=== PATIENT | male | born 1960 | race Caucasian/White ===

== ENCOUNTER → 2017-06-02 | Outpatient (CLI) | payer BC, OTHER ==
[2016-05-06 15:18] VITALS: BP 111/81
[~2017-06-02] MED LIST: ASPI-630 PO; ATORVASTATIN CA80 MG PO; CARV25TA2 PO; FLUT16SP NS; LISI-334 PO; LISI40TA PO; NIAC1000 PO; OMEP20CA9 PO; PRAS10TA9 PO; UBID100T5 PO
--- NOTE | 2017-06-05 09:28 | CARD ---
APPROVED REPORT EXAM: Two-dimensional and M-mode echocardiogram with Doppler and color Doppler. Other Information Quality : GoodHR: 61bpm Rhythm : NSR INDICATION Ischemic cardiomyopathy RISK FACTORS Hypertension Hyperlipidemia Previous tobacco user 2D DIMENSIONS RVDd3.3 (2.9-3.5cm)Left Atrium(2D)3.7 (1.6-4.0cm) IVSd0.9 (0.7-1.1cm)Aortic Root(2D)3.0 (2.0-3.7cm) LVDd5.7 (3.9-5.9cm)LVOT Diameter2.3 (1.8-2.4cm) PWd0.9 (0.7-1.1cm)LVDs4.8 (2.5-4.0cm) FS (%) 15.3 %SV51.3 ml LVEF(%)31.8 (>50%) Aortic Valve AoV Peak Thomas.115.1cm/sAoV VTI28.6cm AO Peak GR.5.3mmHgLVOT Peak Thomas.91.0cm/s AO Mean GR.3mmHgAVA (VMAX)3.17cm2 Mitral Valve MV E Sjglijff85.7cm/sMV DECEL UFGJ200yn MV A Tzoiaobg06.4cm/sE/A Ratio1.5 MV A Bgfruznx18hm Pulmonary Valve PV Peak Ydbxdivx082.0cm/s Tricuspid Valve TR P. Czftqtim071rq/sTR Peak Gr.21mmHg Pulmonary Vein S1 Hlifzoze53.8cm/sD2 Sqzpjyvd59.1cm/s PVa gjvjnjnu44ogxr LEFT VENTRICLE The Left Ventricle is mildly dilated. There is normal left ventricular wall thickness. The Ejection F raction is 35-40%. Akinesis of the mid to distal anterior and anteroseptal sung and also the apical wall. The left ventricular diastolic function and filling is normal for age. No left ventricle thromb us noted on this study. RIGHT VENTRICLE The right ventricle is normal size. There is normal right ventricular wall thickness. The right ventr icular systolic function is normal. There is a pacemaker/ICD lead in the right ventricle. ATRIA The left atrium size is normal. The right atrium size is normal. The interatrial septum is intact wit h no evidence for an atrial septal defect or patent foramen ovale as noted on 2-D or Doppler imaging. AORTIC VALVE The aortic valve is mildly sclerotic. The aortic valve is trileaflet. Doppler and Color Flow revealed no significant aortic regurgitation. There is no significant aortic valvular stenosis. MITRAL VALVE Mitral annular calcification is mild. The mitral valve leaflets are thickened. There is no evidence o f mitral valve prolapse. There is no mitral valve stenosis. Doppler and Color Flow revealed mild mitr al regurgitation. TRICUSPID VALVE Doppler and Color Flow revealed trace tricuspid regurgitation. The pulmonary artery systolic pressure is estimated at 24 mmHg. There is no pulmonary hypertension. PULMONIC VALVE The pulmonary valve is not well visualized but appears to open adequately. Doppler and Color Flow rev ealed no pulmonic valvular regurgitation. There is no pulmonic valvular stenosis by spectral Doppler. GREAT VESSELS The aortic root is normal in size. The ascending aorta is normal in size. The pulmonary artery is nor mal. The IVC is normal in size and collapses >50% with inspiration. PERICARDIAL EFFUSION There is no evidence of significant pericardial effusion. Critical Notification Critical Value: No <Conclusion> Akinesis of the mid to distal anterior and anteroseptal sung and also the apical wall. The Ejection Fraction is 35-40%. There is a pacemaker/ICD lead in the right atrium and right ventricle. Mild mitral regurgitation. Trace tricuspid regurgitation. The pulmonary artery systolic pressure is estimated at 24 mmHg. There is no evidence of significant pericardial effusion.
== END | disposition home or self-care (01) ==
LOC: ECHO 07:43
PROVIDERS: ATTEND Internal Medicine Cardiovascular Disease
DX: I34.0 Nonrheumatic mitral (valve) insufficiency (principal); I25.5 Ischemic cardiomyopathy; I10 Essential (primary) hypertension; E78.5 Hyperlipidemia, unspecified; Z87.891 Personal history of nicotine dependence
CPT/HCPCS: 93306

== ENCOUNTER → 2018-06-08 | Outpatient (CLI) | payer BC ==
[2016-05-06 15:18] VITALS: BP 111/81
[~2018-06-08] MED LIST changes: +LISI-130 PO; -LISI40TA PO
--- NOTE | 2018-06-08 10:07 | CARD ---
MR#: [id number] Date of Study: 06/08/2018 Ordering Physician: SONAL ANNA, Referring Physician: SONAL ANNA Tech: Donna Dominguez ANDRESSA APPROVED REPORT EXAM: Two-dimensional and M-mode echocardiogram with Doppler and color Doppler. Other Information Quality : Technically LimitedHR: 55bpm Rhythm : PacemakerTechnically limited study due to body habitus. INDICATION Cardiomyopathy 2D DIMENSIONS RVDd3.5 (2.9-3.5cm)Left Atrium(2D)4.1 (1.6-4.0cm) IVSd1.2 (0.7-1.1cm)Aortic Root(2D)3.2 (2.0-3.7cm) LVDd5.8 (3.9-5.9cm)LVOT Diameter1.9 (1.8-2.4cm) PWd1.1 (0.7-1.1cm)IVSs1.2 (0.8-1.2cm) LVDs3.8 (2.5-4.0cm)FS (%) 22.0 % PWs1.3 (0.8-1.2cm)SV106.9 ml LVEF(%)40.0 (>50%) M-Mode DIMENSIONS Left Atrium(MM)4.38 (2.5-4.0cm)Aortic Root3.36 (2.2-3.7cm) Aortic Valve AoV Peak Thomas.118.3cm/sAoV VTI23.8cm AO Peak GR.5.6mmHgLVOT Peak Thomas.89.6cm/s LVOT VTI 23.67cmAO Mean GR.3mmHg ADRIEL (VTI)2.71cm2 Mitral Valve MV E Ukjlexoc14.1cm/sMV DECEL DDRM847bs MV A Aqcleljo80.9cm/sMV GOQ87hz E/A Ratio1.2MVA (PHT)4.16cm2 TDI E/Lateral E'7.9E/Medial E'9.4 Pulmonary Valve PV Peak Bdavwngp630.6cm/sPV Peak Grad.5mmHg Tricuspid Valve TR P. Dvlubaki953kq/sRAP VCUDODKN1toSc TR Peak Gr.07kiMlOHDU71aeVa Pulmonary Vein S1 Indopvwk14.1cm/sD2 Hegzrzbu58.9cm/s PVa xjgvamdo06emfr LEFT VENTRICLE The Left Ventricle is borderline dilated. There is normal left ventricular wall thickness. The systol ic function is severely. The Ejection Fraction is 35-40%. Akinesis of the mid to distal anterior and anteroseptal sung as well as apex. Tissue Doppler imaging reveals moderate left ventricular diastoli c dysfunction. RIGHT VENTRICLE The right ventricle is normal size. There is normal right ventricular wall thickness. The right ventr icular systolic function is normal. Probable ICD/pacer lead noted in the RV ATRIA The left atrium is borderline dilated. The right atrium size is normal. The interatrial septum is int act with no evidence for an atrial septal defect or patent foramen ovale as noted on 2-D or Doppler i maging. AORTIC VALVE The aortic valve is thickened but opens well. Doppler and Color Flow revealed no significant aortic r egurgitation. There is no significant aortic valvular stenosis. MITRAL VALVE The mitral valve is normal in structure and function. There is no evidence of mitral valve prolapse. There is no mitral valve stenosis. Doppler and Color-flow revealed mild mitral regurgitation. TRICUSPID VALVE The tricuspid valve is normal in structure and function. Doppler and Color Flow revealed trace to mil d tricuspid regurgitation. The PA pressure was estimated at 24 mmHg. There is no tricuspid valve prol apse or vegetation. There is no tricuspid valve stenosis. PULMONIC VALVE Doppler and Color Flow revealed no pulmonic valvular regurgitation. There is no pulmonic valvular gladys nosis. GREAT VESSELS The aortic root is normal in size. The ascending aorta is normal in size. PERICARDIAL EFFUSION There is no evidence of significant pericardial effusion. Critical Notification Critical Value: No <Conclusion> The systolic function is severely. The Ejection Fraction is 35-40%. Akinesis of the mid to distal anterior and anteroseptal sung as well as apex. Probable ICD/pacer lead noted in the RV Signed by : James Paez, Electronically Approved : 06/08/2018 10:06:18
== END | disposition home or self-care (01) ==
LOC: ECHO 08:46
PROVIDERS: ATTEND Internal Medicine Cardiovascular Disease
DX: I42.9 Cardiomyopathy, unspecified (principal); I11.0 Hypertensive heart disease with heart failure; I50.22 Chronic systolic (congestive) heart failure; I25.10 Atherosclerotic heart disease of native coronary artery without angina pectoris; I25.5 Ischemic cardiomyopathy; I24.9 Acute ischemic heart disease, unspecified; I25.2 Old myocardial infarction; F41.9 Anxiety disorder, unspecified; E78.5 Hyperlipidemia, unspecified; E78.00 Pure hypercholesterolemia, unspecified; Z82.49 Family history of ischemic heart disease and other diseases of the circulatory system; Z80.8 Family history of malignant neoplasm of other organs or systems; Z95.2 Presence of prosthetic heart valve; Z95.5 Presence of coronary angioplasty implant and graft; Z95.810 Presence of automatic (implantable) cardiac defibrillator; Z87.891 Personal history of nicotine dependence
CPT/HCPCS: 93306

== ENCOUNTER → 2018-12-14 | Outpatient (CLI) | payer BC ==
[2016-05-06 15:18] VITALS: BP 111/81
[~2018-12-14] MED LIST changes: +OMEP20CA10 PO; -OMEP20CA9 PO; +REGADENOSON 0.4 MG/5 ML DISP.SYRIN. IV ONE
--- NOTE | 2018-12-14 11:53 | RAD ---
MR#: [id number] Date of Study: 12/14/2018 Ordering Physician: SONAL ANNA, Referring Physician: ANNEMARIE JUÁREZ Tech: GLORIA Chen, ARRT (R) (N) APPROVED REPORT Test Type: Pharmacological Stress Nurse/Tech: Jannet Self RN Test Indications: CAD Cardiac History: MS with stents, PPM/AICD, HTN, x-smoker Medications: See Electronic Medical Record Medical History: See Electronic Medical Record Resting ECG: SR Resting Heart Rate: 57 bpm Resting Blood Pressure: 120/75mmHg Pretest Chest Pain: None Nurse/Tech Notes Lungs CTA, S1S2 Consent: The procedure was explained to the patient in lay terms. Informed consent was witnessed. Hill eout was entered into [employer]. History and Stress Test performed by jannet Self RN Pharm. Details Pharmacologic stress testing was performed using 0.4mg per 5ml of regadenoson given intravenously ove r 7-10 seconds. Stress Symptoms No chest pain or symptoms. POST EXERCISE Reason for Termination: Infusion complete Max HR: 96 bpm Max Blood Pressure: 131/74mmHg Blood Pressure response to exercise: Normal blood pressure response during stress. Heart Rate response to exercise: normal response Chest Pain: No. Arrhythmia: No. ST Change: No. INTERPRETATION Stress EKG Conclusion: Baseline EKG showed sinus rhythm with old anteroseptal infarction. Nondiagnost ic changes at peak stress. No arrhythmias. Imaging Protocol IMAGE PROTOCOL: Rest Tc-99m/stress Tc-99m 1 day Rest: Stress: Viability: Radiopharm.Tc99m QfjrfjmfoTv88i Sestamibi Zaub14yWf 31mCi Img Date 12/14/2018 12/14/2018 Inj-Img Qbib79fdq. 60min. Rest Admin Site:IV - Left AntecubitalAdministrator:RUFINO Yañez Stress Admin Site: IV - Left AntecubitalAdministrator: Robby Monson RT (R)(N) STRESS DATA End Diast. Vol.154.0mlLVEDV index BSA72.0ml End Syst. Vol.66.0mlLVESV index BSA31.0ml Myocardial Tzei869.0gEject. Gsptpiqp09.0% Stress Scores Regional WT1.00Summed WT27.00 Regional WM0.00Summed WM12.00 LV Perfusion Scintigraphic images showed large predominantly fixed defect involving the mid to distal anterior and anteroseptal sung and the entire apical wall consistent with previous myocardial infarction with ve ry small amount of reversibility consistent with giselle-infarct ischemia. Wall Motion Akinetic mid to distal anterior wall and apical wall with ejection fraction calculated at 57%. LV Perf. Quant 17 Seg. SSS33.00 17 Seg. SRS30.00 17 Seg. SDS5.00 Stress Defect Extent (% LAD)73.10Rest Defect Extent (% LAD)66.30Rev. Defect Extent (% LAD)31.30 Stress Defect Extent (% LCX) 26.30Rest Defect Extent (% LCX)23.80Rev. Defect Extent (% LCX)26.30 Stress Defect Extent (% RCA)50.00Rest Defect Extent (% RCA)50.00Rev. Defect Extent (% RCA)18.90 Stress Defect Extent (% JEAN)58.30Rest Defect Extent (% JEAN)53.50Rev. Defect Extent (% JEAN)28.50 Conclusion 1. Regadenoson cardioisotope stress test showed a large infarct involving the mid to distal anterior and anteroseptal sung and the entire apical wall with very small amount of giselle-infarct ischemia. 2. Akinetic mid to distal anterior wall and apical wall with ejection fraction calculated at 57%. 3. Low to intermediate risk for cardiac events. Signed by : Sonal Anna, Electronically Approved : 12/14/2018 11:52:35
== END | disposition home or self-care (01) ==
LOC: NM 07:56
PROVIDERS: ATTEND Internal Medicine Cardiovascular Disease
DX: I25.10 Atherosclerotic heart disease of native coronary artery without angina pectoris (principal); I25.2 Old myocardial infarction; I10 Essential (primary) hypertension; Z87.891 Personal history of nicotine dependence
CPT/HCPCS: 78452; 93017; 96374; A9500; J2785

== ENCOUNTER → 2019-06-14 | Outpatient (CLI) | payer BC ==
[2016-05-06 15:18] VITALS: BP 111/81
[~2019-06-14] MED LIST changes: -REGADENOSON 0.4 MG/5 ML DISP.SYRIN. IV ONE
--- NOTE | 2019-06-14 10:06 | CARD ---
MR#: [id number] Date of Study: 06/14/2019 Ordering Physician: SONAL ANNA, Referring Physician: SONAL ANNA Tech: Donna Dominguez RDCS APPROVED REPORT EXAM: Two-dimensional and M-mode echocardiogram with Doppler and color Doppler. Other Information Quality : Technically LimitedHR: 67bpm Rhythm : NSRTechnically limited study due to body habitus. INDICATION Congestive Heart Failure 2D DIMENSIONS RVDd3.5 (2.9-3.5cm)Left Atrium(2D)3.8 (1.6-4.0cm) IVSd1.2 (0.7-1.1cm)Aortic Root(2D)2.8 (2.0-3.7cm) LVDd5.3 (3.9-5.9cm)LVOT Diameter1.9 (1.8-2.4cm) PWd1.1 (0.7-1.1cm)LVDs4.0 (2.5-4.0cm) FS (%) 24.3 %SV65.1 ml LVEF(%)45.0 (>50%) Aortic Valve AoV Peak Thomas.103.8cm/sAoV VTI19.6cm AO Peak GR.4.3mmHgLVOT Peak Thomas.77.0cm/s AO Mean GR.2mmHgAVA (VMAX)2.11cm2 ADRIEL (VTI)2.20cm2 Mitral Valve MV E Vdetwwyx21.7cm/sMV DECEL OJZO084ow MV A Qrwbedkv42.8cm/sE/A Ratio0.9 Pulmonary Valve PV Peak Fbktvcsb727.2cm/s Tricuspid Valve TR P. Xjyyrnwf394tb/sRAP BZKLGLKR6lbWt TR Peak Gr.45ieCdXQSY02wpPv LEFT VENTRICLE The left ventricle is normal size. There is mild concentric left ventricular hypertrophy. Akinesis of mid to distal anterior and anteroseptal sung and also the apical wall. The Ejection Fraction is 35% . Transmitral Doppler flow pattern is Grade I-abnormal relaxation pattern. RIGHT VENTRICLE The right ventricle is normal size. There is normal right ventricular wall thickness. The right ventr icular systolic function is normal. ICD lead noted in RV/RA. ATRIA The left atrium size is normal. The right atrium size is normal. The interatrial septum is intact wit h no evidence for an atrial septal defect or patent foramen ovale as noted on 2-D or Doppler imaging. AORTIC VALVE The aortic valve is normal in structure and function. The aortic valve is trileaflet. Doppler and Col or Flow revealed no significant aortic regurgitation. There is no significant aortic valvular stenosi s. There is no aortic valvular vegetation. MITRAL VALVE The mitral valve is normal in structure and function. There is no evidence of mitral valve prolapse. There is no mitral valve stenosis. Doppler and Color-flow revealed mild mitral regurgitation. TRICUSPID VALVE The tricuspid valve is normal in structure and function. Doppler and Color Flow revealed trace tricus pid regurgitation. The PA pressure was estimated at 33 mmHg. There is no tricuspid valve prolapse or vegetation. There is no tricuspid valve stenosis. PULMONIC VALVE The pulmonic valve is not well visualized. GREAT VESSELS The aortic root is normal in size. The ascending aorta is normal in size. The IVC was not visualized. PERICARDIAL EFFUSION There is no evidence of significant pericardial effusion. Critical Notification Critical Value: No <Conclusion> Akinesis of mid to distal anterior and anteroseptal sung and also the apical wall. The Ejection Fraction is 35%. Transmitral Doppler flow pattern is Grade I-abnormal relaxation pattern. ICD lead noted in RV/RA. Mild mitral regurgitation. Trace tricuspid regurgitation. The PA pressure was estimated at 33 mmHg. There is no evidence of significant pericardial effusion. Signed by : Sonal Anna, Electronically Approved : 06/14/2019 10:06:35
== END | disposition home or self-care (01) ==
LOC: ECHO 07:28
PROVIDERS: ATTEND Internal Medicine Cardiovascular Disease
DX: I34.0 Nonrheumatic mitral (valve) insufficiency (principal)
CPT/HCPCS: 93306

== ENCOUNTER → 2020-07-31 | Outpatient (CLI) | payer BC ==
[2016-05-06 15:18] VITALS: BP 111/81
[~2020-07-31] MED LIST changes: -OMEP20CA10 PO; +OMEP20CA16 PO; +REGADENOSON 0.4 MG/5 ML DISP.SYRIN. IV ONE
--- NOTE | 2020-07-31 11:32 | CARD ---
MR#: [id number] Date of Study: 07/31/2020 Ordering Physician: SONAL ANNA, Referring Physician: SONAL ANNA, Tech: Millicent Larson APPROVED REPORT EXAM: Two-dimensional and M-mode echocardiogram with Doppler and color Doppler. Other Information HR: 62bpm INDICATION Congestive Heart Failure RISK FACTORS Hypertension Hyperlipidemia 2D DIMENSIONS RVDd4.1 (2.9-3.5cm)Left Atrium(2D)3.8 (1.6-4.0cm) IVSd0.9 (0.7-1.1cm)Aortic Root(2D)3.2 (2.0-3.7cm) LVDd5.7 (3.9-5.9cm)LVOT Diameter2.0 (1.8-2.4cm) PWd1.1 (0.7-1.1cm)LVDs4.1 (2.5-4.0cm) FS (%) 28.3 %SV86.1 ml LVEF(%)54.0 (>50%) Aortic Valve AoV Peak Thomas.117.7cm/sAoV VTI28.6cm AO Peak GR.5.5mmHgLVOT Peak Thomas.118.8cm/s LVOT VTI 24.56cmAO Mean GR.3mmHg ADRIEL (VMAX)2.20kp8MOQ (VTI)2.76cm2 Mitral Valve MV E Ahtfzkkg22.6cm/sMV DECEL EMDW162qu MV A Syzrxveg83.4cm/sMV ZFH17vb E/A Ratio1.1MVA (PHT)3.96cm2 TDI E/Lateral E'13.7E/Medial E'12.1 Pulmonary Valve PV Peak Yoroecmc40.2cm/sPV Peak Grad.2mmHg Tricuspid Valve TR P. Szpgnvci625ex/sRAP PDNZTYZF9zxBl TR Peak Gr.89hxEjAPZL82kkHg Pulmonary Vein S1 Xgozclla75.3cm/sD2 Ooraiylk20.3cm/s PVa cluxirls418fgcn LEFT VENTRICLE The left ventricle is normal size. There is borderline to mild concentric left ventricular hypertroph y. Akinetic mid to distal anterior and anteroseptal sung and the apical wall. The Ejection Fraction is 35%. Transmitral Doppler flow pattern is Grade II-pseudonormal filling dynamics. RIGHT VENTRICLE The right ventricle is normal size. There is normal right ventricular wall thickness. The right ventr icular systolic function is normal. Pacer/ICD lead noted RA/RV. ATRIA The left atrium is mildly dilated. The right atrium size is normal. The interatrial septum is intact with no evidence for an atrial septal defect or patent foramen ovale as noted on 2-D or Doppler imagi ng. AORTIC VALVE The aortic valve is normal in structure and function. Doppler and Color Flow revealed trace aortic re gurgitation. There is no significant aortic valvular stenosis. Calculated aortic valve area is 2.66 c m2 with maximum pressure gradient of 6 mmHg and mean pressure gradient of 4 mmHg. MITRAL VALVE The mitral valve is normal in structure and function. There is no evidence of mitral valve prolapse. There is no mitral valve stenosis. Doppler and Color-flow revealed trace mitral regurgitation. TRICUSPID VALVE The tricuspid valve is normal in structure and function. Doppler and Color Flow revealed trace tricus pid regurgitation with an estimated PAP of 25 mmHg. There is no tricuspid valve stenosis. PULMONIC VALVE The pulmonic valve is not well visualized. Doppler and Color Flow revealed no pulmonic valvular regur gitation. GREAT VESSELS The aortic root is normal in size. The ascending aorta is normal in size. The IVC was not well visual ized. PERICARDIAL EFFUSION There is no evidence of significant pericardial effusion. Critical Notification Critical Value: No <Conclusion> Akinetic mid to distal anterior and anteroseptal sung and the apical wall. The Ejection Fraction is 35%. Transmitral Doppler flow pattern is Grade II-pseudonormal filling dynamics. Pacer/ICD lead noted RA/RV. Trace mitral regurgitation. Trace tricuspid regurgitation with an estimated PAP of 25 mmHg. There is no evidence of significant pericardial effusion. Signed by : Sonal Anna, Electronically Approved : 07/31/2020 11:31:59
--- NOTE | 2020-07-31 13:46 | RAD ---
MR#: [id number] Date of Study: 07/31/2020 Ordering Physician: SONAL ANNA, Referring Physician: ANNEMARIE JUÁREZ Tech: RT Parish (R) (N) APPROVED REPORT Test Type: Pharmacological Stress Nurse/Tech: Iris Pacheco R.N. Test Indications: CAD Cardiac History: Family history, Hypertension, stents Medications: See Electronic Medical Record Medical History: See Electronic Medical Record Resting ECG: s. leanne Resting Heart Rate: 59 bpm Resting Blood Pressure: 147/97mmHg Pretest Chest Pain: No chest pain Nurse/Tech Notes S1S2, lungs sound clear Consent: The procedure was explained to the patient in lay terms. Informed consent was witnessed. Hill eout was entered into [employer]. History and Stress Test performed by Iris Pacheco R.N. Pharm. Details Pharmacologic stress testing was performed using 0.4mg per 5ml of regadenoson given intravenously ove r 7-10 seconds. Stress Symptoms Dyspnea POST EXERCISE Reason for Termination: Infusion complete Target HR: 135 Max HR: 84 bpm Max Blood Pressure: 150/88mmHg Blood Pressure response to exercise: Normal blood pressure response during stress. Chest Pain: No. Arrhythmia: No. ST Change: No. INTERPRETATION Stress EKG Conclusion: Baseline EKG showed sinus rhythm with old anteroseptal infarct. Nondiagnostic changes at peak stress. No arrhythmias. Imaging Protocol IMAGE PROTOCOL: Rest Tc-99m/stress Tc-99m 1 day Rest: Stress: Viability: Radiopharm.Tc99m DipgvstlfBn72y Sestamibi Ljlv52dLa 30mCi Duration 13min. 13min. Img Date 07/31/2020 07/31/2020 Inj-Img Gkjp92xiq. 60min. Rest Admin Site:[employer] Developer:RT Latisha (R)(N) Stress Admin Site: [employer] Developer: GLORIA Chen, ARRT (R)(N) STRESS DATA End Diast. Vol.128.0mlLVEDV index BSA61.0ml End Syst. Vol.42.0mlLVESV index BSA20.0ml Myocardial Yknb960.0gEject. Attclgzd16.0% Stress Scores Regional WT1.00Summed WT9.00 Regional WM0.00Summed WM5.00 LV Perfusion Scintigraphic images showed large fixed defect involving the mid to distal anterior and anteroseptal sung and the entire apical wall consistent with previous myocardial infarction without any reversibi lity. Wall Motion Akinetic mid to distal anterior and anteroseptal sung and apical wall with ejection fraction 35%. LV Perf. Quant 17 Seg. SSS35.00 17 Seg. SRS36.00 17 Seg. SDS0.00 Stress Defect Extent (% LAD)74.40Rest Defect Extent (% LAD)78.80Rev. Defect Extent (% LAD)0.00 Stress Defect Extent (% LCX) 26.30Rest Defect Extent (% LCX)35.00Rev. Defect Extent (% LCX)0.00 Stress Defect Extent (% RCA)52.20Rest Defect Extent (% RCA)60.00Rev. Defect Extent (% RCA)0.00 Stress Defect Extent (% JEAN)59.30Rest Defect Extent (% JEAN)65.00Rev. Defect Extent (% JEAN)0.00 Conclusion 1. Regadenoson cardioisotope stress test showed large infarct involving the mid to distal anterior an d anteroseptal sung and the entire apical wall without any ischemia.. 2. Akinetic mid to distal anterior and anteroseptal sung and apical wall with ejection fraction 35%. 3. Low to intermediate risk for cardiac events. Signed by : Sonal Anna, Electronically Approved : 07/31/2020 13:46:06
== END ==
LOC: ECHO 07:51
PROVIDERS: ATTEND Internal Medicine Cardiovascular Disease
DX: I25.10 Atherosclerotic heart disease of native coronary artery without angina pectoris (principal); I63.9 Cerebral infarction, unspecified; I51.7 Cardiomegaly
CPT/HCPCS: 78452; 93017; 93306; A9500; J2785

== ENCOUNTER → 2021-08-27 | Outpatient (CLI) | payer BC ==
[2016-05-06 15:18] VITALS: BP 111/81
[~2021-08-27] MED LIST changes: -LISI-334 PO; +LISI20TA18 PO; -REGADENOSON 0.4 MG/5 ML DISP.SYRIN. IV ONE
--- NOTE | 2021-08-27 15:11 | CARD ---
MR#: [id number] Date of Study: 08/27/2021 Ordering Physician: SONAL ANNA, Referring Physician: SONAL ANNA, Tech: Millicent Larson [facility] APPROVED REPORT EXAM: Two-dimensional and M-mode echocardiogram with Doppler and color Doppler. Other Information Quality : AverageHR: 58bpm INDICATION Congestive Heart Failure Surgery/Intervention ICD/Pacemaker: Date: 2013 RISK FACTORS Hypertension Hyperlipidemia 2D DIMENSIONS RVDd3.1 (2.9-3.5cm)Left Atrium(2D)3.6 (1.6-4.0cm) IVSd1.3 (0.7-1.1cm)Aortic Root(2D)3.2 (2.0-3.7cm) LVDd5.6 (3.9-5.9cm)LVOT Diameter2.1 (1.8-2.4cm) PWd1.1 (0.7-1.1cm)LVDs3.4 (2.5-4.0cm) FS (%) 38.3 %SV103.5 ml LVEF(%)67.9 (>50%) Aortic Valve AoV Peak Thomas.109.7cm/sAoV VTI27.9cm AO Peak GR.4.8mmHgLVOT Peak Thomas.89.0cm/s LVOT VTI 22.80cmAO Mean GR.3mmHg ADRIEL (VMAX)2.14lg6ARP (VTI)2.82cm2 Mitral Valve MV E Qwgqdfbv42.9cm/sMV DECEL WWLB656sa MV A Npwxqyen62.6cm/sMV E Mean Gr.1mmHg MV GFK56vkF/A Ratio0.8 MVA (PHT)4.21cm2 TDI E/Lateral E'7.9E/Medial E'8.6 Pulmonary Valve PV Peak Lordezvt80.2cm/sPV Peak Grad.3mmHg Tricuspid Valve TR P. Ricvkyge314sz/sRAP NCFDPGAI6beLb TR Peak Gr.87wdCzBQTL72ntPk Pulmonary Vein S1 Ocmbcdnx92.3cm/sD2 Pqpzyedm82.2cm/s PVa scnqvwjg413pxnx LEFT VENTRICLE The left ventricle is normal size. There is mild to moderate concentric left ventricular hypertrophy. The left ventricular systolic function is moderately impaired. The estimated Ejection Fraction is 35 %. Akinetic mid to distal anterior and anteroseptal sung and the apical wall. Transmitral Doppler fl ow pattern is Grade I-abnormal relaxation pattern. RIGHT VENTRICLE The right ventricle is normal size. There is normal right ventricular wall thickness. The right ventr icular systolic function is normal. There is a pacemaker lead in the right ventricle. ATRIA The left atrium size is normal. The right atrium size is normal. The interatrial septum is intact wit h no evidence for an atrial septal defect or patent foramen ovale as noted on 2-D or Doppler imaging. AORTIC VALVE The aortic valve is normal in structure and function. Doppler and Color Flow revealed trace aortic re gurgitation. There is no significant aortic valvular stenosis. Calculated aortic valve area is 3.13 c m2 with maximum pressure gradient of 6 mmHg and mean pressure gradient of 3 mmHg. MITRAL VALVE The mitral valve is normal in structure and function. There is no evidence of mitral valve prolapse. There is no mitral valve stenosis. Doppler and Color-flow revealed trace mitral regurgitation. TRICUSPID VALVE The tricuspid valve is normal in structure and function. Doppler and Color Flow revealed trace tricus pid regurgitation with an estimated PAP of 26 mmHg. There is no tricuspid valve stenosis. PULMONIC VALVE The pulmonary valve is normal in structure and function. Doppler and Color Flow revealed no pulmonic valvular regurgitation. GREAT VESSELS The aortic root is normal in size. The ascending aorta is normal in size. The IVC is normal in size a nd collapses >50% with inspiration. PERICARDIAL EFFUSION There is no evidence of significant pericardial effusion. Critical Notification Critical Value: No <Conclusion> The left ventricular systolic function is moderately impaired. The estimated Ejection Fraction is 35%. Akinetic mid to distal anterior and anteroseptal sung and the apical wall. Transmitral Doppler flow pattern is Grade I-abnormal relaxation pattern. Pacer/ICD lead noted RA/RV. Trace mitral regurgitation. Trace tricuspid regurgitation with an estimated PAP of 26 mmHg. There is no evidence of significant pericardial effusion. Signed by : Sonal Anna, Electronically Approved : 08/27/2021 15:11:09
== END ==
LOC: ECHO 07:39
PROVIDERS: ATTEND Internal Medicine Cardiovascular Disease
DX: I51.7 Cardiomegaly (principal); I50.22 Chronic systolic (congestive) heart failure
CPT/HCPCS: 93306